=== PATIENT | male | born 1940 | race Caucasian/White ===

== ENCOUNTER 2019-06-24 06:06 | Day surgery (SDC) | payer MEDICARE ==
[2019-06-19 11:15] VITALS: BP 117/60
[2019-06-19 11:19] LABS: BASOPHILS % (AUTO) 0.2 % (0.0-5.0); EOSINOPHILS % (AUTO) 1.4 % (0.0-8.0); LYMPHOCYTES % (AUTO) 27.1 % (21.0-51.0); MEAN CORPUSCULAR HEMOGLOBIN 33.3 pg (27.0-33.0); MEAN CORPUSCULAR HGB CONC 34.9 g/dL (32.0-36.0); MEAN CORPUSCULAR VOLUME 95.2 fL (79-99); MONOCYTES % (AUTO) 10.4 % (3.0-13.0); NEUTROPHILS % (AUTO) 60.9 % (40.0-77.0); PLATELET COUNT (AUTO) 182 K/uL (130-400); RED BLOOD CELL COUNT(AUTO) 4.41 MIL/uL (4.50-6.20); RED CELL DISTRIBUTION WIDTH 13.7 % (11.0-15.5); WHITE BLOOD COUNT (AUTO) 6.6 K/uL (4.8-10.8)
[2019-06-19 11:33] LABS: CREATININE 0.8 mg/dL (0.5-1.5)
--- NOTE | 2019-06-21 09:23 | NUR ---
PER DR HOFFMAN EKG LOOKS FINE NO FURTHER ORDERS.
[2019-06-24] VITALS (10 sets, daily range): BP systolic 110–150; BP diastolic 53–71
[~2019-06-24] VITALS: Ht 170.2 cm; Wt 82.3 kg
[~2019-06-24 06:06] MED LIST: ASPI-555 PO; CLOP75TA14 PO; DULO60CA64 PO; FINA5TAB41 PO; GLIM1TAB3 PO; LISI1TAB32 PO; METF-526 PO; METO-391 PO; SIMV-43 PO; TAMS-1 PO; TRIA0.2573 PO
[2019-06-24] MEDS ORDERED: SODIUM CHLORIDE 0.9% 1000ML 1,000 ML IV ONE (06:35)
[2019-06-24] MEDS ORDERED: CEFAZOLIN SODIUM 1 GM VIAL ONE (06:36)
[2019-06-24] MEDS ORDERED: MIDAZOLAM HCL 1 MG/ML 2ML VIAL ONE (06:55)
[2019-06-24] MEDS ORDERED: FENTANYL CITRATE PF 50 MCG/1 ML 2ML VIAL ONE (06:56)
[2019-06-24] MEDS ORDERED: SODIUM BICARB [NEONATAL] 4.2% 10ML SYG ONE (07:05)
[2019-06-24] MEDS ORDERED: LIDOCAINE HCL 1% 20 ML VIAL ONE (07:05)
[2019-06-24] MEDS ORDERED: IOPAMIDOL 10 ML VIAL ONE (07:36)
[2019-06-24] MEDS ORDERED: CEFAZOLIN SODIUM 1 GM VIAL IVP ONE (08:00)
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
== END 2019-06-24 09:46 | disposition home or self-care (01) ==
LOC: DAH 06:06 → EDSEX 10:00
PROVIDERS: ATTEND Neurological Surgery
DX: M53.3 Sacrococcygeal disorders, not elsewhere classified (principal); I25.10 Atherosclerotic heart disease of native coronary artery without angina pectoris; E11.9 Type 2 diabetes mellitus without complications; I11.9 Hypertensive heart disease without heart failure; I45.10 Unspecified right bundle-branch block; Z79.899 Other long term (current) drug therapy; Z79.84 Long term (current) use of oral hypoglycemic drugs; Z79.01 Long term (current) use of anticoagulants
CPT/HCPCS: G0260 ×22; 36415; 72020; 80048; 82948; 85025; 93005; J0690; J1030; J2250; J3010; J3490; J7030

== ENCOUNTER → 2020-07-23 | Outpatient (CLI) | payer MEDICARE ==
[~2020-07-23] MED LIST changes: -ASPI-555 PO; +ASPI-556 PO; +GLIM1TAB18 PO; -GLIM1TAB3 PO
== END | disposition home or self-care (01) ==
LOC: RAH 15:03
PROVIDERS: ATTEND Physical Medicine & Rehabilitation
DX: M50.122 Cervical disc disorder at C5-C6 level with radiculopathy (principal); M48.02 Spinal stenosis, cervical region
CPT/HCPCS: 72141